=== PATIENT | male | born 1960 | race African-American/Black ===

== ENCOUNTER 2018-07-05 13:56 | Inpatient (IN) | payer OTHER ==
[2018-07-05 15:27] VITALS: BMI 25.5
--- NOTE | 2018-07-05 17:21 | HP ---
COWS - Scale Resting Pulse: 0= NH 80 or Below Sweatin= No chills or Flushing Restless Observation: 0= Sits Still Pupil Size: 0= Normal to Room Light Bone or Joint Aches: 2= Severe Diffuse Aches Runny Nose/ Eye Tearin= Runny Nose/Eyes GI Upset > 30mins: 0= None Tremor Observation: 0= None Yawning Observation: 0= None Anxiety or Irritability: 2=Irritable/Anxious Goose Flesh Skin: 0=Smooth Skin COWS Score: 6 CIWA Score Nausea/Vomitin-No Nausea/No Vomiting Muscle Tremors: None Anxiety: 4-Mod. Anxious/Guarded Agitation: 0-Normal Activity Paroxysmal Sweats: 1-Minimal Palms Moist Orientation: 0-Oriented Tacttile Disturbances: 0-None Auditory Disturbances: 0-None Visual Disturbances: 0-None Headache: 0-None Present CIWA-Ar Total Score: 5 - Admission Criteria OASAS Guidelines: Admission for Medically Managed Detox: Requires at least one of the followin. CIWA greater than 12 2. Seizures within the past 24 hours 3. Delirium tremens within the past 24 hours 4. Hallucinations within the past 24 hours 5. Acute intervention needed for co occurring medical disorder 6. Acute intervention needed for co occurring psychiatric disorder 7. Severe withdrawal that cannot be handled at a lower level of care (continued vomiting, continued diarrhea, abnormal vital signs) requiring intravenous medication and/or fluids 8. Admission ROS [facility] Allergies/Adverse Reactions: Allergies Allergy/AdvReac Type Severity Reaction Status Date / Time No Known Allergies Allergy Verified 07/05/18 15:16 History of Present Illness: pt here requesting detox and rehab from etoh use , reports 5 cans /beer /day x 16 oz each x 7 months , prior sober from etoh , currently reports drinking in the mornings , denies tremors , blackouts, seizures , latest use Wednesday , together with heroin and cocaine . Reports heroin use x 1 month , currently 1 bag/day via inhalation, denies IVDU . Cocaine 40 $/day via inhalation , latest use Wednesday . This is the pt's first inpt program , reports was in outpt program in [place] 2 x/week. Current symptoms as above. Reports OD 3 d . ago went to [facility]. tobacco : > 1/2 ppd pmhx : toenail fungus, bunion, , left tkr 1 year ago , bunionectomy bilaterally , Right vth finger fusion 2/2 sports injury , appy meds : prilosec , foot ointment - went to [facility] 3 days ago . psych : depression , anxiety , suicide attempt 2005 by cutting wrist , denies current SI / Hi . Search Terms: keyon pulliam, 1960 Search Date: 07/05/2018 06:51:52 PM The Drug Utilization Report below displays all of the controlled substance prescriptions, if any, that your patient has filled in the last twelve months. The information displayed on this report is compiled from pharmacy submissions to the Department, and accurately reflects the information as submitted by the pharmacies. This report was requested by: Alee Rose | Reference #: [id number] There are no results for the search terms that you entered. Exam Limitations: No Limitations - Ebola screening Have you traveled outside of the country in the last 21 days: No (N) Have you had contact with anyone from an Ebola affected area: No Do you have a fever: No - Review of Systems Constitutional: Loss of Appetite EENT: reports: Other (redaing glasses) Respiratory: reports: No Symptoms reported Cardiac: reports: No Symptoms Reported GI: reports: No Symptoms Reported : reports: No Symptoms Reported Musculoskeletal: reports: Joint Pain (left tkr) Integumentary: reports: See HPI Neuro: reports: No Symptoms reported Endocrine: reports: No Symptoms Reported Psychiatric: reports: Orientated x3 Patient History - Smoking Cessation Smoking history: Current every day smoker Have you smoked in the past 12 months: Yes Hx Chewing Tobacco Use: No Initiated information on smoking cessation: No - Substances abused Heroin Substance route: Inhalation Frequency: 3-6 times per week Amount used: 1BAG Age of first use: 58 Date of last use: 07/03/18 Family Disease History - Family Disease History Family History: Denies Admission Physical Exam [facility] - Vital Signs Vital Signs: Vital Signs - 24 hr 07/05/18 15:16 Temperature 98.4 F Pulse Rate 55 L Respiratory 18 Rate Blood Pressure 105/61 - Physical General Appearance: Yes: Anxious HEENTM: Yes: EOMI, Hearing grossly Normal, Normocephalic, Normal Voice Respiratory: Yes: Chest Non-Tender, Lungs Clear, Normal Breath Sounds Neck: Yes: No masses,lesions,Nodules, Trachea in good position Cardiology: Yes: Regular Rhythm, Regular Rate, S1, S2 Abdominal: Yes: Normal Bowel Sounds, Soft, Surgical Scar Musculoskeletal: Yes: Gait Steady Extremities: Yes: Normal Range of Motion Neurological: Yes: Alert, Motor Strength 5/5 Integumentary: Yes: Warm, Rash (per pt " for years ") - Diagnostic (1) Alcohol abuse Current Visit: Yes Status: Chronic (2) Cocaine abuse Current Visit: Yes Status: Acute (3) Opioid abuse Current Visit: Yes Status: Acute (4) Tobacco dependence Current Visit: Yes Status: Chronic Breathalyzer - Breathalyzer Breathalyzer: 0 Urine Drug Screen - Test Device Lot number: [id number] Expiration date: 03/17/20 - Control Is test valid?: Yes - Results Drug screen NEGATIVE: No Urine drug screen results: TEO-Cocaine, MOP-Opiates Inpatient Rehab Admission - Rehab Decision to Admit Inpatient rehab admission?: Yes - Initial Determination Are CD services needed?: Yes Free of communicable disease: Yes Not in need of hospitalization: Yes - Rehab Admission Criteria Previous failed treatment: No Poor recovery environment: Yes Comorbidities: No Lacks judgement: Yes Patient is meeting Inpatient Rehab admission criteria:: Yes
[2018-07-05] MEDS ORDERED: ACETAMINOPHEN 325 MG TABLET (FP) PO PRN (18:06)
[2018-07-05] MEDS ORDERED: guaiFENesin 200 MG/10 ML 10 ML UNIT-DOSE CUPS PO PRN (18:06)
[2018-07-05] MEDS ORDERED: MAGNESIUM HYDROX 2400MG/30ML ORAL SUSPENSION 30 ML CUP PO PRN (18:06)
[2018-07-05] MEDS ORDERED: P-EPHED 60MG/TRIPROLIDI 2.5MG TABLET PO PRN (18:06)
[2018-07-05] MEDS ORDERED: IBUPROFEN 400 MG TABLET (FP) PO PRN (18:06)
[2018-07-05] MEDS ORDERED: NICOTINE POLACRILEX 2 MG GUM BC PRN (18:06)
[2018-07-05] MEDS ORDERED: hydrOXYzine PAMOATE 25 MG CAPSULE (FP) PO PRN (18:06)
[2018-07-05] MEDS ORDERED: MENTHOL/PHENOL 1 EACH UD MM PRN (18:06)
[2018-07-05] MEDS ORDERED: MAGNESIUM CITRATE 300 ML BOTTLE PO PRN (18:06)
[2018-07-05] MEDS ORDERED: TUBERCULIN PPD 5 TU/0.1ML VIAL ID ONE (19:13)
[2018-07-05] MEDS ORDERED: COLLOIDAL OATMEAL 1 BAR EACH TP PRN (19:54)
[2018-07-05] MEDS: THIAMINE HCL 100 MG TABLET (FP) PO SCH (21:43)
[2018-07-05] MEDS: PANTOPRAZOLE 20 MG TABLET (FP) PO SCH (21:44)
[2018-07-05] MEDS: PETROLATUM, WHITE 30 GM TUBE TP SCH (21:44)
[2018-07-05] MEDS: CLOTRIMAZOLE 1% CREAM 15 GM TUBE TP SCH (21:45)
[2018-07-05] MEDS ORDERED: MELATONIN 5 MG TABLETS PO PRN (22:00)
[2018-07-05] MEDS: MAG HYDROX/AL HYDROX/SIMETH 30 ML UNIT-DOSE CUP PO PRN (22:38)
[2018-07-06] MEDS ORDERED: TUBERCULIN PPD 5 TU/0.1ML VIAL ID ONE (00:43)
[2018-07-06 10:28] LABS: HEMATOCRIT 42.9 % (35.4-49); HEMOGLOBIN 14.5 GM/dL (11.7-16.9); MCH 34.6 pg (25.7-33.7); MCHC 33.9 g/dl (32.0-35.9); MEAN CELL VOLUME 102.1 fl (80-96); MEAN PLT VOLUME 8.5 fl (7.5-11.1); PLATELET COUNT 137 K/MM3 (134-434); RDW 13.1 % (11.9-15.9); WHITE BLOOD COUNT 4.2 K/mm3 (4.0-10.0)
[2018-07-06] MEDS: PRENATAL VITAMINS W/ FOLIC ACID TABLET (FP) PO SCH (10:39)
[2018-07-06] MEDS: PANTOPRAZOLE 20 MG TABLET (FP) PO SCH ×2 (10:39→11:27)
[2018-07-06] MEDS: PETROLATUM, WHITE 30 GM TUBE TP SCH (10:40)
[2018-07-06 10:42] LABS: ALBUMIN 3.2 g/dl (3.4-5.0); BILIRUBIN,TOTAL 0.4 mg/dL (0.2-1); CALCIUM 8.9 mg/dL (8.5-10.1); CREATININE 0.9 mg/dL (0.55-1.3); POTASSIUM 3.8 mmol/L (3.5-5.1); TOT PROT 6.4 g/dl (6.4-8.2)
[2018-07-06] MEDS: PATIENT'S OWN MEDICATION (NON-FORMULARY) (Omeprazole 20 MG) PO SCH (12:10)
[2018-07-06] MEDS: CLOTRIMAZOLE 1% CREAM 15 GM TUBE TP SCH (12:11)
--- NOTE | 2018-07-06 13:40 | CONSULT ---
[facility] Psychiatric Consult - Data Date of interview: 07/06/18 Admission source: [facility] Identifying data: First admission to [facility] for this 58 y/o AA male self- referred for Rehabilitation (alcohol, heroin). Direct admission to [address] Patient is single, no children, Domiciled, unemployed and supported on welfare. Substance Abuse History: Confirmed by patient in this interview. Patient reports that alcohol is his preferred substance of abuse. Uses heroin and cocaine at intervals. He indicates that he was " forced " to get into a rehabilitation program in order to keep his residence (was reportedly caught drinkinh ETOH on the premises). Details in current [facility] report as follows : Smoking history: Current every day smoker. Have you smoked in the past 12 months: Yes. Hx Chewing Tobacco Use: No. Initiated information on smoking cessation: No. - Substances abused. Heroin. Substance route: Inhalation. Frequency: 3-6 times per week. Amount used: 1BAG. Age of first use: 58. Date of last use: 07/03/18 Medical History: Remarkable for bunions, history of bilateral buniectomy and fusion of right fifth finger fusion (sports injury). Psychiatric History: No reported history of psychiatric hospitalizations. Patient indicates past treatment for depression while incarcerated seven months ago. Was treated with celexa 20 mg/day. Stopped treatment after his release. No psychiatric OPD care. Mr Ahsan admits to one suicide attempt via wrist- cutting (2004). Physical/Sexual Abuse/Trauma History: Patient denies. Additional Comment: Urine drug screen results: TEO-Cocaine, MOP-Opiates. Noted. Mental Status Exam - Mental Status Exam Alert and Oriented to: Time, Place, Person Cognitive Function: Good Patient Appearance: Well Groomed Mood: Nervous, Anxious, Hopeful Affect: Appropriate, Mood Congruent, Normal Range Patient Behavior: Fatigued, Appropriate, Cooperative Speech Pattern: Clear, Appropriate Voice Loudness: Normal Thought Process: Intact, Goal Oriented Thought Disorder: Not Present Hallucinations: Denies Suicidal Ideation: Denies Homicidal Ideation: Denies Insight/Judgement: Fair Sleep: Well Appetite: Good Muscle strength/Tone: Normal Gait/Station: Normal Psychiatric Findings - Problem List (Daniel 1, 2,3) (1) Alcohol dependence Current Visit: Yes Status: Chronic (2) Heroin abuse Current Visit: Yes Status: Chronic (3) Cocaine abuse Current Visit: Yes Status: Chronic (4) Nicotine dependence Current Visit: Yes Status: Chronic (5) Substance induced mood disorder Current Visit: Yes Status: Chronic - Initial Treatment Plan Initial Treatment Plan: Psychoeducation. Sleep hygiene. Groups. Relapse prevention (MAT) : discussed with patient. Celexa 10 mg po daily. Ordered at patient's request. Side effects/benefits discussed with patient. Observation.
--- NOTE | 2018-07-06 14:59 | PN ---
[facility] Progress Note Note: PT HAS A HX OF BUNIONECTOMY, TOENAIL FUNGUS AND CURRENTLY ON TREATMENT WITH CLOTRIMAZOLE CREAM 1%. PT REPORTS HE WAS AT [facility] 3 DAYS AGO BEFORE ADMISSION HERE AND WAS REFERRED TO A [facility] WITH APPOINTMENT MADE FOR 07/06/18 AFTERNOON(WHICH IS TODAY) BUT CAME HERE YESTERDAY BECAUSE "MY HOUSING WANTS ME TO COME HERE". PT JUST REALIZED TODAY IS HIS APPOINTMENT DAY. PT WAS ENCOURAGED TO CALL BACK AND RESCHEDULE APPOINTMENT PENDING DISCHARGE FROM HERE. Vital Signs - 24 hr 07/05/18 07/06/18 07/06/18 15:16 00:30 03:30 Temperature 98.4 F Pulse Rate 55 L Respiratory 18 18 18 Rate Blood Pressure 105/61 07/06/18 06:51 Temperature 97.7 F Pulse Rate 58 L Respiratory 18 Rate Blood Pressure 116/75 Laboratory Tests 07/06/18 07/06/18 07/06/18 07:40 07:40 07:40 WBC 4.2 RBC 4.20 Hgb 14.5 Hct 42.9 MCV 102.1 H MCH 34.6 H MCHC 33.9 RDW 13.1 Plt Count 137 MPV 8.5 Sodium 141 Potassium 3.8 Chloride 111 H Carbon Dioxide 28 Anion Gap 3 L BUN 9 Creatinine 0.9 Est GFR (CKD-EPI)AfAm 107.97 Est GFR (CKD-EPI)NonAf 93.16 Random Glucose 89 Calcium 8.9 Total Bilirubin 0.4 AST 26 ALT 35 Alkaline Phosphatase 206 H Total Protein 6.4 Albumin 3.2 L RPR Titer Nonreactive UA PENDING COLLECTION FEET:BUNION; TOENAILS YELLOW/ DARK DISCOLORATIONS. BLISTER BETWEEN 2ND AND 3RD TOES OF LEFT FOOT. PLAN:CONTINUE ANTIFUNGAL CREAM DIRECTED BACITRACIN OINTMENT TO BLISTER AREA. CALL TO RESCHEDULE APPOINTMENT.
[2018-07-06] MEDS ORDERED: LIDOCAINE VISCOUS 2% ORAL/TOP 20 ML UNIT-DOSE CUP MM PRN (16:03)
[2018-07-06] MEDS: CLOTRIMAZOLE 1% TP SCH (21:33)
[2018-07-06] MEDS: THIAMINE HCL 100 MG TABLET (FP) PO SCH (21:33)
[2018-07-07] MEDS: CITALOPRAM HYDROBROMIDE 10 MG TABLET (FP) PO SCH (10:22)
[2018-07-07] MEDS: PATIENT'S OWN MEDICATION (NON-FORMULARY) (Omeprazole 20 MG) PO SCH (10:22)
[2018-07-07] MEDS: PRENATAL VITAMINS W/ FOLIC ACID TABLET (FP) PO SCH (10:22)
[2018-07-07] MEDS: CLOTRIMAZOLE 1% TP SCH ×2 (10:23→21:24)
[2018-07-07] MEDS: LIDOCAINE VISCOUS 2% ORAL/TOP 20 ML UNIT-DOSE CUP MM PRN (10:40)
[2018-07-07] MEDS: MAGNESIUM SULFATE 16 OZ CRYSTALS TP SCH (15:57)
[2018-07-07] MEDS: THIAMINE HCL 100 MG TABLET (FP) PO SCH (21:24)
--- NOTE | 2018-07-08 10:40 | PN ---
[facility] Progress Note Note: MR. LYNCH REQUESTED TO SCHEDULE APPOINTMENT WITH [facility] [place] [place]. PHONE# [phone] YOU WERE [facility]FERR[facility] WHERE YOU HAD VISITED ON 06/30/18. YOU MADE AN APPOINTMENT TODAY AT CLINIC FOLLOWS: APPOINTMENT DATE: JULY 20, 2018 (WEDNESDAY) TIME:12 NOON ([facility]IVE 30 MINUTES EARLY AT 11:30 A.M TO THE CLINIC) DOCUMENTS TO BRIN.LIST OF YOUR CURRENT HOME MEDICATIONS 2.INSURANCE CARD 3. PHOTO I.D
[2018-07-08] MEDS: CITALOPRAM HYDROBROMIDE 10 MG TABLET (FP) PO SCH (10:44)
[2018-07-08] MEDS: PRENATAL VITAMINS W/ FOLIC ACID TABLET (FP) PO SCH (10:44)
[2018-07-08] MEDS: PATIENT'S OWN MEDICATION (NON-FORMULARY) (Omeprazole 20 MG) PO SCH (10:44)
[2018-07-08] MEDS: CLOTRIMAZOLE 1% TP SCH ×2 (10:44→21:58)
[2018-07-08] MEDS: MAGNESIUM SULFATE 16 OZ CRYSTALS TP SCH (10:45)
[2018-07-08] MEDS: THIAMINE HCL 100 MG TABLET (FP) PO SCH (21:58)
--- NOTE | 2018-07-09 09:52 | PN ---
[facility] Progress Note Note: patient complaint of pain in the neck for 2 days alert,no trauma Vital Signs Temperature 98.4 F 07/09/18 07:02 Pulse Rate 52 L 07/09/18 07:02 Respiratory Rate 18 07/09/18 07:02 Blood Pressure 121/58 L 07/09/18 07:02 O2 Sat by Pulse Oximetry (%) no stiff neck movement of neck with pain afebrile possible arthritis treatment motrin 400 mgs po q 4 hrs prn fpr pain robaxin 500 mgs po q 6 hrs prn for muscle spasm close monitoring
[2018-07-09] MEDS: MAGNESIUM SULFATE 16 OZ CRYSTALS TP SCH (10:29)
[2018-07-09] MEDS: PATIENT'S OWN MEDICATION (NON-FORMULARY) (Omeprazole 20 MG) PO SCH (10:30)
[2018-07-09] MEDS: CLOTRIMAZOLE 1% TP SCH ×2 (10:30→21:52)
[2018-07-09] MEDS: PRENATAL VITAMINS W/ FOLIC ACID TABLET (FP) PO SCH (10:30)
[2018-07-09] MEDS: CITALOPRAM HYDROBROMIDE 10 MG TABLET (FP) PO SCH (10:30)
[2018-07-09] MEDS: METHOCARBAMOL 500 MG TABLET PO PRN ×2 (10:55→20:39)
[2018-07-09] MEDS: THIAMINE HCL 100 MG TABLET (FP) PO SCH (21:52)
[2018-07-10] MEDS: PATIENT'S OWN MEDICATION (NON-FORMULARY) (Omeprazole 20 MG) PO SCH (10:28)
[2018-07-10] MEDS: CITALOPRAM HYDROBROMIDE 10 MG TABLET (FP) PO SCH (10:28)
[2018-07-10] MEDS: CLOTRIMAZOLE 1% TP SCH ×2 (10:28→21:33)
[2018-07-10] MEDS: PRENATAL VITAMINS W/ FOLIC ACID TABLET (FP) PO SCH (10:28)
[2018-07-10] MEDS: MAGNESIUM SULFATE 16 OZ CRYSTALS TP SCH (10:30)
[2018-07-10] MEDS: METHOCARBAMOL 500 MG TABLET PO PRN ×2 (10:49→21:34)
[2018-07-10] MEDS: THIAMINE HCL 100 MG TABLET (FP) PO SCH (21:34)
[2018-07-11] MEDS: LIDOCAINE VISCOUS 2% ORAL/TOP 20 ML UNIT-DOSE CUP MM PRN (06:23)
[2018-07-11] MEDS: CITALOPRAM HYDROBROMIDE 10 MG TABLET (FP) PO SCH (10:22)
[2018-07-11] MEDS: PATIENT'S OWN MEDICATION (NON-FORMULARY) (Omeprazole 20 MG) PO SCH (10:22)
[2018-07-11] MEDS: PRENATAL VITAMINS W/ FOLIC ACID TABLET (FP) PO SCH (10:22)
[2018-07-11] MEDS: MAGNESIUM SULFATE 16 OZ CRYSTALS TP SCH (10:23)
[2018-07-11] MEDS: METHOCARBAMOL 500 MG TABLET PO PRN (10:24)
[2018-07-11] MEDS: CLOTRIMAZOLE 1% TP SCH ×2 (10:25→22:00)
[2018-07-11] MEDS: THIAMINE HCL 100 MG TABLET (FP) PO SCH (22:00)
[2018-07-12] MEDS: PRENATAL VITAMINS W/ FOLIC ACID TABLET (FP) PO SCH (11:01)
[2018-07-12] MEDS: CITALOPRAM HYDROBROMIDE 10 MG TABLET (FP) PO SCH (11:01)
[2018-07-12] MEDS: MAGNESIUM SULFATE 16 OZ CRYSTALS TP SCH (11:03)
[2018-07-12] MEDS: PATIENT'S OWN MEDICATION (NON-FORMULARY) (Omeprazole 20 MG) PO SCH (11:03)
[2018-07-12] MEDS: CLOTRIMAZOLE 1% TP SCH ×2 (11:04→21:47)
[2018-07-12] MEDS: THIAMINE HCL 100 MG TABLET (FP) PO SCH (21:48)
[2018-07-13] MEDS: PRENATAL VITAMINS W/ FOLIC ACID TABLET (FP) PO SCH (10:25)
[2018-07-13] MEDS: PATIENT'S OWN MEDICATION (NON-FORMULARY) (Omeprazole 20 MG) PO SCH (10:25)
[2018-07-13] MEDS: CITALOPRAM HYDROBROMIDE 10 MG TABLET (FP) PO SCH (10:25)
[2018-07-13] MEDS: MAGNESIUM SULFATE 16 OZ CRYSTALS TP SCH (10:25)
[2018-07-13] MEDS: CLOTRIMAZOLE 1% TP SCH (10:26)
[2018-07-13] MEDS: METHOCARBAMOL 500 MG TABLET PO PRN ×2 (10:27→21:32)
[2018-07-13 17:10] LABS: PH,URINE 8.5 (5.0-8.0); URINE APPEARANCE CLOUDY; URINE BILIRUBIN NEGATIVE (NEGATIVE); URINE COLOR YELLOW; URINE GLUCOSE (UA) NEGATIVE (NEGATIVE); URINE KETONE NEGATIVE (NEGATIVE); URINE LEUK ESTERASE NEGATIVE (NEGATIVE); URINE NITRITE NEGATIVE (NEGATIVE); URINE PROTEIN NEGATIVE (NEGATIVE); URINE UROBILINOGEN 0.2 mg/dL (0.2-1.0)
[2018-07-13] MEDS: THIAMINE HCL 100 MG TABLET (FP) PO SCH (21:30)
[2018-07-13] MEDS: CLOTRIMAZOLE 1% CREAM 15 GM TUBE TP SCH (21:33)
[2018-07-14] MEDS: CITALOPRAM HYDROBROMIDE 10 MG TABLET (FP) PO SCH (10:36)
[2018-07-14] MEDS: PRENATAL VITAMINS W/ FOLIC ACID TABLET (FP) PO SCH (10:36)
[2018-07-14] MEDS: PATIENT'S OWN MEDICATION (NON-FORMULARY) (Omeprazole 20 MG) PO SCH (10:36)
[2018-07-14] MEDS: CLOTRIMAZOLE 1% CREAM 15 GM TUBE TP SCH ×2 (10:37→21:41)
[2018-07-14] MEDS: MAGNESIUM SULFATE 16 OZ CRYSTALS TP SCH (10:37)
[2018-07-14] MEDS: METHOCARBAMOL 500 MG TABLET PO PRN ×2 (10:37→21:41)
[2018-07-14] MEDS: THIAMINE HCL 100 MG TABLET (FP) PO SCH (21:40)
[2018-07-15] MEDS: MAG HYDROX/AL HYDROX/SIMETH 30 ML UNIT-DOSE CUP PO PRN (01:31)
[2018-07-15] MEDS: PRENATAL VITAMINS W/ FOLIC ACID TABLET (FP) PO SCH (10:13)
[2018-07-15] MEDS: CITALOPRAM HYDROBROMIDE 10 MG TABLET (FP) PO SCH (10:13)
[2018-07-15] MEDS: PATIENT'S OWN MEDICATION (NON-FORMULARY) (Omeprazole 20 MG) PO SCH (10:14)
[2018-07-15] MEDS: CLOTRIMAZOLE 1% CREAM 15 GM TUBE TP SCH ×2 (10:15→22:09)
[2018-07-15] MEDS: MAGNESIUM SULFATE 16 OZ CRYSTALS TP SCH (10:15)
[2018-07-15] MEDS: METHOCARBAMOL 500 MG TABLET PO PRN (10:17)
[2018-07-15] MEDS: IBUPROFEN 600 MG TABLET (FP) PO PRN ×2 (13:00→22:09)
[2018-07-15] MEDS: THIAMINE HCL 100 MG TABLET (FP) PO SCH (22:09)
[2018-07-16] MEDS: PRENATAL VITAMINS W/ FOLIC ACID TABLET (FP) PO SCH (10:17)
[2018-07-16] MEDS: CITALOPRAM HYDROBROMIDE 10 MG TABLET (FP) PO SCH (10:18)
[2018-07-16] MEDS: PATIENT'S OWN MEDICATION (NON-FORMULARY) (Omeprazole 20 MG) PO SCH (10:18)
[2018-07-16] MEDS: METHOCARBAMOL 500 MG TABLET PO PRN (10:18)
[2018-07-16] MEDS: CLOTRIMAZOLE 1% CREAM 15 GM TUBE TP SCH ×2 (10:19→21:51)
[2018-07-16] MEDS: MAGNESIUM SULFATE 16 OZ CRYSTALS TP SCH (10:19)
[2018-07-16] MEDS: IBUPROFEN 600 MG TABLET (FP) PO PRN ×2 (10:20→16:56)
[2018-07-16] MEDS: THIAMINE HCL 100 MG TABLET (FP) PO SCH (21:52)
[2018-07-17] MEDS: CITALOPRAM HYDROBROMIDE 10 MG TABLET (FP) PO SCH (10:25)
[2018-07-17] MEDS: PRENATAL VITAMINS W/ FOLIC ACID TABLET (FP) PO SCH (10:25)
[2018-07-17] MEDS: IBUPROFEN 600 MG TABLET (FP) PO PRN ×2 (10:25→21:53)
[2018-07-17] MEDS: METHOCARBAMOL 500 MG TABLET PO PRN ×2 (10:26→21:53)
[2018-07-17] MEDS: PATIENT'S OWN MEDICATION (NON-FORMULARY) (Omeprazole 20 MG) PO SCH (10:27)
[2018-07-17] MEDS: MAGNESIUM SULFATE 16 OZ CRYSTALS TP SCH (10:27)
[2018-07-17] MEDS: CLOTRIMAZOLE 1% CREAM 15 GM TUBE TP SCH ×2 (10:27→21:54)
[2018-07-17] MEDS: THIAMINE HCL 100 MG TABLET (FP) PO SCH (21:53)
[2018-07-18] MEDS: PRENATAL VITAMINS W/ FOLIC ACID TABLET (FP) PO SCH (10:45)
[2018-07-18] MEDS: CITALOPRAM HYDROBROMIDE 10 MG TABLET (FP) PO SCH (10:45)
[2018-07-18] MEDS: METHOCARBAMOL 500 MG TABLET PO PRN (10:45)
[2018-07-18] MEDS: IBUPROFEN 600 MG TABLET (FP) PO PRN (10:45)
[2018-07-18] MEDS: MAGNESIUM SULFATE 16 OZ CRYSTALS TP SCH (10:47)
[2018-07-18] MEDS: PATIENT'S OWN MEDICATION (NON-FORMULARY) (Omeprazole 20 MG) PO SCH (10:47)
[2018-07-18] MEDS: CLOTRIMAZOLE 1% CREAM 15 GM TUBE TP SCH ×2 (10:47→21:42)
--- NOTE | 2018-07-18 14:56 | PN ---
[facility] Progress Note Note: Patient is scheduled for discharge tomorrow. Script for 30 days supply of Celexa 10 mg/day will be electronically transmitted to [facility] at [address] [place] [address]
[2018-07-18] MEDS: THIAMINE HCL 100 MG TABLET (FP) PO SCH (21:42)
[2018-07-19 06:31] VITALS: BP 117/71; PULSE 51; TEMP 98.3
[2018-07-19] MEDS: PRENATAL VITAMINS W/ FOLIC ACID TABLET (FP) PO SCH (09:40)
[2018-07-19] MEDS: CITALOPRAM HYDROBROMIDE 10 MG TABLET (FP) PO SCH (09:40)
[2018-07-19] MEDS: MAGNESIUM SULFATE 16 OZ CRYSTALS TP SCH (09:41)
[2018-07-19] MEDS: CLOTRIMAZOLE 1% CREAM 15 GM TUBE TP SCH (09:42)
[2018-07-19] MEDS: PATIENT'S OWN MEDICATION (NON-FORMULARY) (Omeprazole 20 MG) PO SCH (11:21)
--- NOTE | 2018-07-19 11:33 | PN ---
[facility] Progress Note (SOAP) Subjective: PT COMPLETED REHAB AND DISCHARGED TODAY. PT MET WITH HIS COUNSELOR MAY BURNS AND HAS BEEN REFERRED TO [facility] ON [address], [place] FOR CD AFTERCARE. PT REPORTS HE HAS NO PCP BUT UTILIZES [facility] NEEDED. PT HAS BEEN INSTRUCTED TO FOLLOW UP AT [facility] AT THE [facility] TO REGISTER A CLINIC PATIENT. PT HAS APPOINTMENT WITH THE [facility] ATTEND[facility] TOMORROW 07/20/18 AND HAS BEEN REMINDED TO FOLLOW UP WITH PLAN. ALERT O X 3. AMBULATES WITH STEADY GAIT. DENIES S/H/I. REQUEST FOR COURTESY RX FOR OMEORAZOLE AND LOTRIMIN CREAM ELECTRONICALLY SENT TO [facility] FOR PATIENT TO [facility] TECHNICIAN AFTER DISCHARGE. Objective: 07/19/18 11:33 Vital Signs - 24 hr 07/19/18 07/19/18 07/19/18 00:30 03:30 06:29 Temperature 98.3 F Pulse Rate 51 L Respiratory 16 18 17 Rate Blood Pressure 117/71 Laboratory Tests 07/06/18 07/06/18 07/06/18 07:40 07:40 07:40 WBC 4.2 RBC 4.20 Hgb 14.5 Hct 42.9 MCV 102.1 H MCH 34.6 H MCHC 33.9 RDW 13.1 Plt Count 137 MPV 8.5 Sodium 141 Potassium 3.8 Chloride 111 H Carbon Dioxide 28 Anion Gap 3 L BUN 9 Creatinine 0.9 Est GFR (CKD-EPI)AfAm 107.97 Est GFR (CKD-EPI)NonAf 93.16 Random Glucose 89 Calcium 8.9 Total Bilirubin 0.4 AST 26 ALT 35 Alkaline Phosphatase 206 H Total Protein 6.4 Albumin 3.2 L Urine Color Urine Appearance Urine pH Ur Specific [place] Urine Protein Urine Glucose (UA) Urine Ketones Urine Blood Urine Nitrite Urine Bilirubin Urine Urobilinogen Ur Leukocyte Esterase RPR Titer Nonreactive 07/13/18 13:30 WBC RBC Hgb Hct MCV MCH MCHC RDW Plt Count MPV Sodium Potassium Chloride Carbon Dioxide Anion Gap BUN Creatinine Est GFR (CKD-EPI)AfAm Est GFR (CKD-EPI)NonAf Random Glucose Calcium Total Bilirubin AST ALT Alkaline Phosphatase Total Protein Albumin Urine Color Yellow Urine Appearance Cloudy Urine pH 8.5 H Ur Specific [place] 1.014 Urine Protein Negative Urine Glucose (UA) Negative Urine Ketones Negative Urine Blood Negative Urine Nitrite Negative Urine Bilirubin Negative Urine Urobilinogen 0.2 Ur Leukocyte Esterase Negative RPR Titer Home Medications Medication Instructions Recorded Citalopram Hydrobromide [Celexa -] 10 mg PO BID 07/05/18 Omeprazole Magnesium [Prilosec Otc] 20 mg PO BID 07/05/18 Citalopram Hydrobromide [Celexa -] 10 mg PO DAILY #30 tablet 07/18/18 Clotrimazole [Lotrimin -] 1 applic TP BID #1 tube 07/19/18 Omeprazole 20 mg PO DAILY #30 capsule. 07/19/18 Assessment: 07/19/18 11:33 NAD MEDICALLY STABLE FOOT BLISTER RESOLVED Plan: D/C PT TODAY FOLLOW UP WITH CD AFTERCARE RECOMMENDATION. FOLLOW UP WITH [facility] FOR A PCP WITHIN 1 WEEK AFTER DISCHARGE. FOLLOW UP WITH [facility] ATTEND[facility] APPOINTMENT BELOW. A COPY OF THIS REMINDER WAS GIVEN TO PATIENT ON DISCHARGE. ADDENDUM: COPY WITH PATIENT. MR. LYNCH REQUESTED TO SCHEDULE APPOINTMENT WITH [facility] ON [address] [place] [address]. PHONE# [phone] YOU WERE REFERRED TO [facility] WHERE YOU HAD VISITED ON 06/30/18. YOU MADE AN APPOINTMENT TODAY AT CLINIC FOLLOWS: APPOINTMENT DATE: JULY 20, 2018 (WEDNESDAY) TIME:12 NOON (ARRIVE 30 MINUTES EARLY AT 11:30 A.M TO THE CLINIC) DOCUMENTS TO BRIN.LIST OF YOUR CURRENT HOME MEDICATIONS 2.INSURANCE CARD 3. PHOTO I.D
== END 2018-07-19 10:15 | disposition home or self-care (01) | DRG 772 ==
LOC: YASAS 13:56 → Y5N 17:34
PROVIDERS: ADMIT Neuromusculoskeletal Medicine & OMM; ATTEND Neuromusculoskeletal Medicine & OMM
PROC: HZ42ZZZ Group Counseling for Substance Abuse Treatment, Cognitive-Behavioral (ICD-10-PCS; principal; 2018-07-05)
DX: F11.20 Opioid dependence, uncomplicated (principal); F10.20 Alcohol dependence, uncomplicated; F14.20 Cocaine dependence, uncomplicated; F17.210 Nicotine dependence, cigarettes, uncomplicated; F19.24 Other psychoactive substance dependence with psychoactive substance-induced mood disorder; B35.1 Tinea unguium; B35.3 Tinea pedis; M21.619 Bunion of unspecified foot; M54.2 Cervicalgia
CPT/HCPCS: 36415; 80053; 81003; 85027; 86593